=== PATIENT | male | born 1945 | race Caucasian/White ===

== ENCOUNTER → 2017-08-24 | Outpatient (CLI) | payer OTHER ==
--- NOTE | 2017-08-24 10:33 | RAD ---
Renal ultrasound, 08/24/2017: History: Elevated serum creatinine level The right kidney measures 11.5 cm in length while the left kidney measures 10.7 cm. There is no evidence of hydronephrosis or a renal mass. The renal parenchymal echogenicity is within normal limits. Limited views of urinary bladder show no specific abnormality. Prevoiding views demonstrate a bladder volume of 440 cc. There is a small volume of post voiding residual urine in the bladder estimated at 40 cc. IMPRESSION: No significant renal abnormality is detected.
== END | disposition home or self-care (01) ==
LOC: US 08:27
PROVIDERS: ATTEND Family Medicine
DX: R79.89 Other specified abnormal findings of blood chemistry (principal)
CPT/HCPCS: 76770